=== PATIENT | female | born 2005 | race Caucasian/White ===

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

== ENCOUNTER 2025-08-07 13:30 | Emergency (ER) | payer SELFPAY ==
[2025-08-07 13:30] VITALS: BP 122/82; PULSE 98; RESP 16; TEMP 36.9; O2SAT 100; BMI 23.7
--- NOTE | 2025-08-07 14:22 | RAD_ITS ---
PROCEDURE: ABDOMEN SINGLE VIEW 08/07/2025 REASON FOR EXAM: CONSTIPATION TECHNIQUE: Procedure Code: RADABD Modality: DX Procedure: ABDOMEN SINGLE VIEW COMPARISON: None. FINDINGS: LUNG BASES: Lung bases clear where seen. BOWEL: The bowel gas pattern is unremarkable. No bowel obstruction. PERITONEUM/SOFT TISSUES: No appreciable free air. Small calcified phlebolith in the left pelvis. BONES: No acute osseous abnormality. RAD/Abdomen Single View IMPRESSION: NO ACUTE FINDINGS. Reading Location: [id number]
--- NOTE | 2025-08-07 14:24 | ED.VIS.GI ---
HPI HPI - GI History of Present Illness Chief Complaint: Nausea/Vomiting Detail of Chief Complaint: Nausea but no vomiting. Started yesterday. Informant: patient and parent Nausea/Vomiting/Emesis GI Symptom: Positive for Nausea and - (Denies abdominal pain. Denies dysuria.); Negative for Vomiting Onset: Today and Yesterday Severity: Mild Diarrhea/Melena/Hematochezia GI Symptom: Negative for Diarrhea, Melena or Hematochezia Associated Symptoms Associated Symptoms: Negative for Dysuria, Frequency, Hematuria or Urgency Narrative Narrative: 19-year-old female who is new past medical or surgical history. No prior abdominal surgeries. States she had nausea yesterday. Has not had any vomiting no diarrhea. History of constipation but states she has been having bowel movements. Started yesterday. No abdominal pain. No dysuria. No fever. Last menstrual period was in July she is not late nor misted. Mom states the patient is very anxious because she hates the throw up. To the nausea makes her very nervous. Prior similar symptoms: Yes Recent Illness/Hospitalization: No PFSH PFSH Medical History no medical history no medical history Home Medications ?Medication ?Instructions ?Recorded ?Last Taken ?Type ondansetron 4 mg disintegrating 4 mg PO Q6H PRN nausea and 08/07/25 Unknown Rx tablet vomiting #10 tabs Allergy/AdvReac Type Severity Reaction Status Date / Time No Known Allergies Allergy Verified 08/07/25 13:31 Social History Smoking Status: Never smoker ROS ROS ED ROS Narrative Nausea. No vomiting or diarrhea. No constipation. No fever. No dysuria. No abdominal pain. Constitutional Constitutional ED: Denies chills or fever(s) ENT ENT ED: Denies ear pain Cardiovascular Cardiovascular: Denies chest pain Respiratory/Chest Respiratory/Chest: Denies cough or dyspnea Gastrointestinal Gastrointestinal: Reports nausea; Denies abdominal pain, constipation, diarrhea, melena or vomiting Genitourinary Genitourinary ED: Denies dysuria or hematuria Musculoskeletal Musculoskeletal: Denies arthralgias Integumentary Denies abscess Neurologic Neurologic: Denies headache(s) Psychiatric Psychiatric: Denies anxiety Endocrine Endocrinology: Denies polydipsia, polyphagia or polyuria Hematologic/Lymphatic Hematologic/Lymphatic: Denies easy bleeding Allergic/Immunologic Allergic/Immunologic ED: Denies mouth swelling, tongue swelling or urticaria EXAM Physical Exam Narrative Exam Narrative: Female vital signs are stable afebrile. Does not look septic toxic she is anxious but she is in no distress. Mom at bedside. H EENT exam pupils round react light. Moist mucous membranes. Neck nontender no JVD. No lymphadenopathy. Back nontender. Lungs clear to auscultation bilaterally. Heart regular rhythm no murmur. Abdomen is soft, nontender, nondistended, normal bowel sounds without peritoneal signs. There is no localizing tenderness. No hernia or mass. No obstruction. Both the right upper and right lower quadrants are unremarkable. Moving all 4 extremities. Nontender no edema. Neurologically she is awake alert. Answering questions and following commands. Const Vital Signs: 08/07/25 13:30 08/07/25 15:16 08/07/25 16:26 Temperature 98.5 F 98.5 F Temperature Source Oral Pulse Rate 98 76 102 H Respiratory Rate 16 16 16 Blood Pressure 122/82 H 103/65 97/58 L Blood Pressure Mean 95 77 71 Pulse Ox 100 98 98 Oxygen Delivery Method Room Air Room Air MDM MDM MDM Narrative Medical decision making narrative: Female complaining of nausea. Exam is benign. She will be given IV Zofran and a liter of fluid. She is not having any urinary symptoms. No abdominal pain. Do not think she needs a UA nor an abdominal CAT scan. Do not believe at this time she needs any labs unless she does not improve. Mom requested a small dose of an antianxiety medication which should be given a dose of Ativan. And a KUB will be obtained due to her history of constipation and again mom's request. Repeat CMP is doing well at 4:05 PM. Abdomen is benign. After the Ativan she was feeling much better. Nausea is resolved. I did a lot of this associate with anxiety. Initially we were not running any labs. Mom just requested that I send some studies. They like to be discharged home. CBC, CMP and test will be sent. I suspect to be negative. Prescription for Zofran will be sent to her pharmacy. History & Record Review Discussion w/independent historian: Patient and Family Additional record(s) reviewed:: No prior records Lab Data Attestation: I reviewed the patient's lab results. Lab results narrative: CBC shows a white count of 5.3. H&H 14 and 42. Platelets 242 Pending labs checked out to oncoming physician. Labs: Laboratory Results - last 24 hr 08/07/25 14:30 WBC 5.3 RBC 4.94 Hgb 14.1 Hct 42.1 MCV 85.2 MCH 28.5 MCHC 33.5 RDW Std Deviation 39.5 RDW Coeff of Luca 12.8 Plt Count 242 MPV 11.9 Immature Gran % (Auto) 0.200 Neut % (Auto) 66.6 Lymph % (Auto) 26.8 [place] % (Auto) 5.6 Eos % (Auto) 0.2 Baso % (Auto) 0.6 Absolute Neuts (auto) 3.6 Absolute Lymphs (auto) 1.43 Nucleated RBC % 0 Radiography Diagnostic Testing: Clinical Impression(s) from Imaging Studies KUB X-Ray 08/07/25 14:22 IMPRESSION: NO ACUTE FINDINGS. Reading Location: [facility], single view, 2 films show no acute abnormality. Normal bowel gas. No signs of constipation or obstruction. Benign exam. Also read by the radiologist agrees. Discharge Plan Triage Chief Complaint: Nausea/Vomiting ED Provider: Martir Chavez Dx/Rx/DC Orders Clinical Impression: Nausea, Anxiety Instructions: ED Vomiting (Adult) Prescriptions: New ondansetron 4 mg tablet,disintegrating 4 mg PO Q6H PRN (Reason: nausea and vomiting) Qty: 10 0RF Primary Care Provider: Wyatt Browne Referrals: Wyatt Browne MD [Primary Care Provider, Pediatrics] - 3-5 Days if not improving Activity Restrictions/Additional Instructions: Plenty of fluids and rest. Slowly increase your diet as tolerated. Zofran as needed for nausea. Follow-up with your primary care provider if not improving or return if a lot worse. Print Language: Polish Disposition Disposition: Home, Self Care Discharge Date/Time: 08/07/25 16:26
[2025-08-07] MEDS: 0.9% Normal Saline (1000mL) 1,000 ML 999 ML IV (14:28)
[2025-08-07 15:16] VITALS: BP 103/65; PULSE 76; RESP 16; O2SAT 98
[2025-08-07 16:15] LABS: Hematocrit 42.1 % (37-47); Hemoglobin 14.1 g/dL (12.0-15.0); Immature Granulocytes Count 0.010 X10^3/uL (0.0-0.0); Mean Corp Hgb Conc 33.5 g/dL (32-36); Mean Corpuscular Volume 85.2 fL (81-99); Mean Platelet Vol. 11.9 fl (6.2-12.0); NRBC Flagged by Analyzer 0 % (0-5); Platelet Count 242 K/mm3 (150-450); RBC Distribution Width CV 12.8 % (11.6-14.6); RBC Distribution Width SD 39.5 fl (35.1-43.9); Red Blood Count 4.94 M/mm3 (4.2-5.4); White Blood Count 5.3 K/mm3 (4.4-11.0)
[2025-08-07 16:26] VITALS: BP 97/58; PULSE 102; RESP 16; TEMP 36.9; O2SAT 98
[2025-08-07 16:52] LABS: Internal QC Validated? YES +Cl - CLEAR BKGD; Pregnancy, Serum, hCG Quali. NEGATIVE Negative
[2025-08-07 16:55] LABS: AST(SGOT) 24 U/L (<=31); Alanine Aminotransfer ALT/SGPT 6 U/L (<=34); Albumin, Serum 5.2 g/dL (3.5-5.0); Alkaline Phosphatase 65 U/L (35-104); Anion Gap 14 (5-15); BUN 11 mg/dL (4-19); BUN/Creat Ratio 15.9 RATIO (10-20); Calcium,Total 10.0 mg/dL (7.6-11.0); Carbon Dioxide 23.1 mmol/L (21.0-32.0); Chloride 106 mmol/L (98-108); Estimated Creatinine Clearance 108.48 ml/min (50-250); Globulin 3.0 g/dL (2.2-4.2); Glucose 78 mg/dL (70-99); Potassium 3.5 mmol/L (3.3-5.1)
== END 2025-08-07 16:26 | disposition home or self-care (01) ==
PROVIDERS: Emergency Provider Emergency Medicine; PCP Pediatrics; Visit Provider Emergency Medicine
DX: R11.0 Nausea (principal); F41.9 Anxiety disorder, unspecified
CPT/HCPCS: 74018; 80053; 84703; 85025; 96361; 96374; 96375; 99283; A4216; J2405